=== PATIENT | male | born 1985 | race Two or more races ===

== ENCOUNTER 2024-04-30 14:47 | Emergency (ER) | payer MEDICAID ==
[~2024-04-30] VITALS: Ht 177.8 cm; Wt 73.0 kg
[2024-04-30 16:35] LABS: Basophils # (auto) 0.1 10 ^3/uL (0-0.2); Basophils % (auto) 0.6 % (0.0-2.0); Eosinophils # (auto) 0 10 ^3/uL (0-0.8); Eosinophils % (auto) 0.5 % (0.0-7.0); Hematocrit 43.3 % (41.0-53.0); Hemoglobin 14.8 g/dL (13.5-17.5); Lymphocytes # (auto) 1.1 10 ^3/uL (0.4-5.4); Lymphocytes % (auto) 13.2 % (10.0-50.0); Mean Corpuscular Hemoglobin 31.4 pg (28.0-32.0); Mean Corpuscular Hgb Conc. 34.2 g/dL (32.0-36.0); Mean Corpuscular Volume 91.9 fL (80.0-100.0); Monocytes # (auto) 0.6 10 ^3/uL (0-1.3); Monocytes % (auto) 7.3 % (0.0-12.0); Neutrophils # (auto) 6.7 10 ^3/uL (1.6-8.6); Neutrophils % (auto) 78.4 % (37.0-80.0); Platelet Count (auto) 354 10^3/uL (140-450); Red Blood Cells 4.71 10^6/uL (4.5-5.90); Red Cell Distribution Width 13.6 % (11.8-14.3); White Blood Cell 8.5 10^3/uL (4.4-10.8)
[2024-04-30 16:51] LABS: Amphetamine Screen, Urine Neg (NEGATIVE)
[2024-04-30 16:52] LABS: Barbiturate Scree,Urine Neg (NEGATIVE); Benzodiazephine Screen, Urine Neg (NEGATIVE); Cannabinoid Screen, Urine Pos (NEGATIVE); Cocaine Screen, Urine Neg (NEGATIVE); Opiate Scree,Urine Neg (NEGATIVE); Phencyclidine Screen, Urine Neg (NEGATIVE)
[2024-04-30 16:54] LABS: Alanine Aminotransferase 44 U/L (7-40); Albumin 4.4 g/dL (3.2-4.8); Alkaline Phosphatase 84 U/L (46-116); Anion Gap 7 (5-15); Aspartate Aminotransferase 34 U/L (13-40); BUN/Creatinine Ratio 11.9 (10.0-20.0); Blood Alcohol < 3.0 mg/dL (<10); Blood Urea Nitrogen 10 mg/dL (9-23); Calcium 9.6 mg/dL (8.7-10.4); Carbon Dioxide 25 mmol/L (20-31); Chloride 108 mmol/L (98-107); Glucose 111 mg/dL (74-106); Potassium 3.9 mmol/L (3.5-5.1); Sodium 140 mmol/L (136-145)
[2024-04-30 16:55] LABS: Bilirubin, Total 0.4 mg/dL (0.2-1.0); Total Protein 7.5 g/dL (5.7-8.2)
[2024-04-30] MEDS: HALOPERIDOL LACTATE 5 MG/ML INJ VIAL IM ONE ×2 (17:00→17:21)
[2024-04-30] MEDS: LORazepam 2MG/ML-1ML VIAL IM ONE ×2 (17:00→17:27)
[2024-04-30] MEDS: LORazepam 2MG/ML-1ML VIAL IV ONE (17:02)
[2024-04-30] MEDS: diphenhdrAMINE HCL 50 MG/1 ML VL IM ONE ×2 (17:19→17:27)
[2024-04-30 19:19] VITALS: PULSE 83; RESP 14; O2SAT 100
[2024-05-01] MEDS ORDERED: OLANZapine 5 MG TAB PO PRN (05:30)
[2024-05-01] MEDS ORDERED: LORazepam 0.5 MG TAB PO PRN (05:30)
[2024-05-01] MEDS: FLUoxetine HCL 20 MG CAP PO SCH (10:13)
[2024-05-01] MEDS: OLANZapine 5 MG TAB PO ONE (10:13)
[2024-05-01 19:30] VITALS: PULSE 78; RESP 16; O2SAT 99
[2024-05-01] MEDS: QUEtiapine FUMARATE 25 MG TAB PO SCH (23:09)
[2024-05-01] MEDS: NICOTINE 14 MG/24HR TOPICAL PATCH TD SCH (23:29)
[2024-05-02] MEDS: HALOPERIDOL LACTATE 5 MG/ML INJ VIAL ONE (07:26)
[2024-05-02] MEDS: diphenhdrAMINE HCL 50 MG/1 ML VL ONE (07:26)
[2024-05-02] MEDS: LORazepam 2MG/ML-1ML VIAL ONE (07:26)
[2024-05-02 07:34] VITALS: PULSE 89; RESP 16; O2SAT 97
[2024-05-02 08:00] VITALS: BP 147/72; PULSE 88; RESP 16; TEMP 98.9; O2SAT 98
[2024-05-02] MEDS: OLANZapine 5 MG TAB PO ONE (11:42)
== END 2024-05-02 12:36 | disposition left against medical advice (07) ==
LOC: ER 14:47 → EDBD 14:47 → ER 05-02 12:36
DX: F23 Brief psychotic disorder (principal); F17.200 Nicotine dependence, unspecified, uncomplicated; F31.9 Bipolar disorder, unspecified; Z91.148 Patient's other noncompliance with medication regimen for other reason; Z79.899 Other long term (current) drug therapy
CPT/HCPCS: 36415; 70450; 80053; 80307; 80320; 85025; 93005; 96372; 96374; 99285; J1200; J1630; J2060